=== PATIENT | male | born 1970 | race Hispanic/Latino ===

== ENCOUNTER 2019-07-22 14:19 | Emergency (ER) | payer OTHER ==
[~2019-07-22] VITALS: Ht 165.1 cm; Wt 77.1 kg
[2019-07-22] MEDS ORDERED: NAPROXEN375 M1 PO (14:34)
[2019-07-22] MEDS ORDERED: CAPZASIN-HP42.5 GM TOP (14:35)
[2019-07-22] MEDS ORDERED: HYDROCHLOROTH12.5 MG PO (14:35)
[2019-07-22] MEDS ORDERED: LISINOPRIL20 MG PO (14:35)
[2019-07-22] MEDS ORDERED: MOBIC7.5 MG PO (14:36)
[2019-07-22] MEDS ORDERED: OMEPRAZOLE20 MG PO (14:37)
== END 2019-07-22 16:49 | disposition home or self-care (01) ==
LOC: ED 14:19
DX: M54.42 Lumbago with sciatica, left side (principal); Z79.899 Other long term (current) drug therapy
CPT/HCPCS: 93971; 99283-25